=== PATIENT | male | born 1985 | race Caucasian/White ===

== ENCOUNTER 2016-10-15 08:29 | Inpatient (IN) | payer OTHER ==
[~2016-10-15] VITALS: Ht 182.9 cm; Wt 74.0 kg
[~2016-10-15 08:29] MED LIST: AMLODIPINE BESYL5 MG PO; BACTRIM,SEPT1 TABLET PO; ENDOCET 5-3251 EACH PO; KEFLEX500 MG PO; LISINOPRIL20 MG PO; LISINOPRIL5 MG PO; NOHOMEMEDS; OMEPRAZOLE20 MG PO; OMEPRAZOLE40 M1 PO; OXYCODONE-APAP1 EACH PO; PERCOCET 5/31 TABLET PO; TYLENOL REGULA325 MG PO; ZITHROMAX250 MG PO; ZOFRAN ODT4 MG PO
[2016-10-15 09:08] LABS: EOSINOPHIL (%) 0.4 % (0-5); HEMATOCRIT 44.5 % (38.0-50.0); IMMATURE GRANULOCYTE (%) 0.4 % (0.0-0.7); INSTRUMENT ABS NEUTROPHIL CT 6.1 K/uL; LYMPHOCYTE COUNT 1.4 K/uL (1.0-2.8); MCH 31.9 PG (29.0-34.0); MCHC 33.9 G/DL (30.0-36.0); MCV 94.1 FL (86-99); MEAN PLAT.VOLUME 9.6 uM^3 (9.0-12.4); MONOCYTE (%) 8.2 % (3-12); MONOCYTE COUNT 0.7 K/uL (0-0.8); NEUTROPHIL (%) 73.6 % (45-76); NEUTROPHIL COUNT 6.1 K/uL (1.8-6.4); PLATELET COUNT 158 K/uL (156-360); RBC DIS.WIDTH-CV 13.8 % (11.8-14.6); RBC DIS.WIDTH-SD 47.8 % (39-53); RED BLOOD COUNT 4.73 M/uL (4.00-5.50); WHITE BLOOD COUNT 8.3 K/uL (4.1-10.2)
[2016-10-15 09:15] LABS: CHLORIDE 103 mEq/L (99-109); SODIUM 141 mEq/L (136-147)
[2016-10-15 09:18] LABS: GLUCOSE 95 mg/dL (70-99)
[2016-10-15 09:19] LABS: ANION GAP 11 MEQ/L (2-14)
[2016-10-15 09:20] LABS: TOTAL BILIRUBIN 1.1 mg/dL (0.0-1.0)
[2016-10-15 09:21] LABS: ALKALINE PHOSPHATASE 93 IU/L (3-129); GFR ESTIMATE (CALCULATED) > 59 mL/min/
[2016-10-15 09:22] LABS: UREA NITROGEN (BUN) 6 mg/dL (9-23)
[2016-10-15 09:25] LABS: LIPASE 189 U/L (1.0-51.0)
[2016-10-15] MEDS ORDERED: ROXICODONE5 MG PO (11:20)
[2016-10-15] MEDS ORDERED: VITAMIN C500 MG/15 PO (11:22)
[2016-10-15 13:53] LABS: EOSINOPHIL (%) 0.2 % (0-5); HEMATOCRIT 41.2 % (38.0-50.0); IMMATURE GRANULOCYTE (%) 0.3 % (0.0-0.7); INSTRUMENT ABS NEUTROPHIL CT 7.2 K/uL; LYMPHOCYTE COUNT 1.6 K/uL (1.0-2.8); MCH 32.1 PG (29.0-34.0); MCHC 34.2 G/DL (30.0-36.0); MCV 93.8 FL (86-99); MEAN PLAT.VOLUME 9.8 uM^3 (9.0-12.4); MONOCYTE (%) 7.2 % (3-12); MONOCYTE COUNT 0.7 K/uL (0-0.8); NEUTROPHIL (%) 75.2 % (45-76); NEUTROPHIL COUNT 7.2 K/uL (1.8-6.4); PLATELET COUNT 142 K/uL (156-360); RBC DIS.WIDTH-CV 13.9 % (11.8-14.6); RBC DIS.WIDTH-SD 48.2 % (39-53); RED BLOOD COUNT 4.39 M/uL (4.00-5.50); WHITE BLOOD COUNT 9.6 K/uL (4.1-10.2)
[2016-10-15 14:09] LABS: CHLORIDE 106 mEq/L (99-109); POTASSIUM 3.9 mEq/L (3.7-5.4); SODIUM 139 mEq/L (136-147)
[2016-10-15 14:11] LABS: GLUCOSE 99 mg/dL (70-99)
[2016-10-15 14:12] LABS: ANION GAP 8 MEQ/L (2-14)
[2016-10-15 14:13] LABS: TOTAL BILIRUBIN 0.9 mg/dL (0.0-1.0)
[2016-10-15 14:14] LABS: ALKALINE PHOSPHATASE 82 IU/L (3-129)
[2016-10-15 14:15] LABS: GFR ESTIMATE (CALCULATED) > 59 mL/min/
[2016-10-15 14:16] LABS: UREA NITROGEN (BUN) 4 mg/dL (9-23)
[2016-10-15 14:18] LABS: LIPASE 191 U/L (1.0-51.0)
[2016-10-15 20:53] VITALS: BP 132/96
[2016-10-15 23:47] VITALS: BP 119/86
[2016-10-16 03:46] VITALS: BP 124/87
[2016-10-16 05:36] LABS: MCH 31.9 PG (29.0-34.0); MCHC 33.4 G/DL (30.0-36.0); MCV 95.5 FL (86-99); PLATELET COUNT 121 K/uL (156-360); RBC DIS.WIDTH-CV 14.1 % (11.8-14.6); RBC DIS.WIDTH-SD 49.9 % (39-53); RED BLOOD COUNT 3.98 M/uL (4.00-5.50); WHITE BLOOD COUNT 5.4 K/uL (4.1-10.2)
[2016-10-16 05:50] LABS: ALKALINE PHOSPHATASE 65 IU/L (3-129); ANION GAP 5 MEQ/L (2-14); CHLORIDE 107 MEQ/L (99-109); GFR ESTIMATE (CALCULATED) > 59 mL/min/; GLUCOSE 81 mg/dL (70-99); LIPASE 160 U/L (1.0-51.0); SAMPLE HEMOLYSIS CHECK 0; SAMPLE ICTERIC CHECK 0; SAMPLE LIPEMIA CHECK 0; SODIUM 140 MEQ/L (136-147); TOTAL BILIRUBIN 0.8 MG/DL (0.0-1.0); UREA NITROGEN (BUN) 4 mg/dL (9-23)
[2016-10-16 07:53] VITALS: BP 128/86
[2016-10-16 11:36] VITALS: BP 123/87
[2016-10-16 15:44] VITALS: BP 132/84
[2016-10-16 19:24] VITALS: BP 136/87
[2016-10-17 00:21] VITALS: BP 124/80
[2016-10-17 03:44] VITALS: BP 128/86
[2016-10-17 07:24] VITALS: BP 131/82
[2016-10-17 08:52] LABS: SERUM ETHYL ALCOHOL < 10 mg/dL
[2016-10-17 15:49] VITALS: BP 136/85
[2016-10-17 20:33] VITALS: BP 145/93
[2016-10-18] VITALS (7 sets, daily range): BP systolic 128–149; BP diastolic 82–96
[2016-10-18 06:51] LABS: HEMATOCRIT 37.7 % (38.0-50.0); MCH 32.1 PG (29.0-34.0); MCHC 33.7 G/DL (30.0-36.0); MCV 95.2 FL (86-99); MEAN PLAT.VOLUME 10.6 uM^3 (9.0-12.4); PLATELET COUNT 128 K/uL (156-360); RBC DIS.WIDTH-CV 13.7 % (11.8-14.6); RBC DIS.WIDTH-SD 48.5 % (39-53); RED BLOOD COUNT 3.96 M/uL (4.00-5.50)
[2016-10-18 07:25] LABS: ANION GAP 6 MEQ/L (2-14); CHLORIDE 104 MEQ/L (99-109); GFR ESTIMATE (CALCULATED) > 59 mL/min/; GLUCOSE 71 mg/dL (70-99); LIPASE 32 U/L (1.0-51.0); POTASSIUM 3.7 MEQ/L (3.7-5.4); SAMPLE HEMOLYSIS CHECK 0; SAMPLE ICTERIC CHECK 0; SAMPLE LIPEMIA CHECK 0; SODIUM 140 MEQ/L (136-147); UREA NITROGEN (BUN) 4 mg/dL (9-23)
[2016-10-19 04:02] VITALS: BP 137/93
[2016-10-19 08:26] VITALS: BP 145/83
[2016-10-19] MEDS ORDERED: NICOTINE PATCH1 EAC1 TD (10:16)
[2016-10-19 12:01] VITALS: BP 158/74
== END 2016-10-19 12:20 | disposition home or self-care (01) | DRG 440 ==
LOC: EME → EDBD 08:29 → EDOF 13:02 → 5WEST 13:02 → EDOF 13:02 → ENRESERV 13:04 → EDOF 13:04 → CANRESERV 13:08 → ENRESERV 13:08 → 5WEST 15:34 → 3EAST 10-16 12:48 → ENRESERV 10-16 13:04 → 3EAST 10-16 14:07
PROVIDERS: Emergency Medicine; Hospitalist
DX: K85.20 Alcohol induced acute pancreatitis without necrosis or infection (principal); D69.6 Thrombocytopenia, unspecified; F17.210 Nicotine dependence, cigarettes, uncomplicated; F12.90 Cannabis use, unspecified, uncomplicated; K21.9 Gastro-esophageal reflux disease without esophagitis; I10 Essential (primary) hypertension; J45.909 Unspecified asthma, uncomplicated; F10.10 Alcohol abuse, uncomplicated; G89.29 Other chronic pain; Z88.6 Allergy status to analgesic agent; Z88.8 Allergy status to other drugs, medicaments and biological substances
CPT/HCPCS: 74177; 80048; 80053; 83690; 85025; 85025 91; 85027; 99281; 99285; G0378; G0480; J1650; J2270; J2405; J3010; J7030; J7040